=== PATIENT | male | born 1975 | race Caucasian/White ===

== ENCOUNTER 2017-02-23 09:54 | Emergency (ER) | payer OTHER | END 2017-02-23 13:08 | disposition home or self-care (01) | LOC: ER1 09:54 | DX: S86.112A Strain of other muscle(s) and tendon(s) of posterior muscle group at lower leg level, left leg, initial encounter (principal); Y93.A1 Activity, exercise machines primarily for cardiorespiratory conditioning; Y99.8 Other external cause status | CPT/HCPCS: 93971; 99283 ==